=== PATIENT | female | born 2000 | race Caucasian/White ===

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

== ENCOUNTER 2019-02-28 02:40 | Emergency (ER) | payer OTHER ==
[~2019-02-28 02:40] MED LIST: PROZ10 PO
== END 2019-02-28 03:20 | disposition left against medical advice (07) ==
LOC: EMS 02:41
DX: Z53.21 Procedure and treatment not carried out due to patient leaving prior to being seen by health care provider (principal)